=== PATIENT | male | born 1940 | race Caucasian/White ===

== ENCOUNTER 2025-07-19 10:26 | Day surgery (SDC) | payer MEDICARE, SELFPAY ==
--- OUTSIDE RECORDS SUMMARY | 2025-06-07 14:23 | XMS_ITS | Patient Health Record ---
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
--- OUTSIDE RECORDS SUMMARY | 2025-06-07 14:23 | XMS_ITS | Clinical Summary ---
Author Organization [address] [place] [address] [place] [phone] Phone Care Team Providers Care Supervisor [employer] Name Role Phone Al Faustin MD Primary Care Provider [phone] Allergies No known active allergies Medications losartan (COZAAR) 100 mg tablet Take 1 tablet (100 mg total) by mouth 1 (one) time each day. 4 Active temazepam (RESTORIL) 15 mg capsule Take 1 capsule (15 mg total) by mouth 1 (one) time each day if needed. Max Daily Amount: 15 mg Active pantoprazole (PROTONIX) 40 mg EC tablet Take 1 tablet (40 mg total) by mouth 1 (one) time each day. Active hydroCHLOROthia zide (HYDRODIURIL) 25 mg tablet TAKE 1 TABLET DAILY 90 tablet 3 4 Active Additional Information Patient taking differently: 12.5 mgoral Daily, Reported on 12/31/2024 rosuvastatin (CRESTOR) 5 mg tablet TAKE 1 TABLET BY MOUTH EVERY DAY 90 tablet 2 5 Active sotaloL (BETAPACE) 120 mg tablet TAKE 1 TABLET TWICE A DAY 180 tablet 3 5 Active Eliquis 5 mg tablet TAKE 1 TABLET TWICE A DAY 180 tablet 3 5 Active amLODIPine (NORVASC) 2.5 mg tablet Take 1 tablet (2.5 mg total) by mouth 1 (one) time each day. 5 Active senna (SENOKOT) 8.6 mg tablet Take 2 tablets (17.2 mg total) by mouth 1 (one) time each day. Active Active Problems Problem Noted Date Diagnosed Date Overweight with body mass index (BMI) 25.0-29.9 10/26/2024 Suspected severe acute respi ratory syndrome coronavirus 2 (SARS-CoV-2) infection 10/26/2024 Overview (10/26/2024): Removal Reason: Problem added by user noé from the COVID-19 watch flag Osteopenia 05/26/2024 Vitamin D deficiency 05/26/2024 Osteoporosis 05/24/2024 Acute bilateral low back pain without sciatica 0 04/28/2024 Overview (10/26/2024): Last Assessment & Plan: Patient states he did well for couple weeks after the L3 kyphoplasty, his back pain resolved. Then about 1-2 weeks ago he was bending over and felt a sharp sudden stabbing pain in his low back, it has not resolved, his states it is affecting his ability to function every day. He mostly stays in his recliner, he states when he is lying in the recliner he get a little reprieve from the back pain. He is concerned because the pain is constant, but not as severe as the lumbar compression fracture pain. Last night the pain kept him from sleeping well. He is using Tylenol. He was recently in the hospital for abdominal pain, weight loss, had upper GI 04/09/[address] Khanna that was normal, path: A. Small bowel; biopsy: - DUODENAL MUCOSA WITH FOVEOLAR METAPLASIA. B. Antrum; biopsy: - GASTRIC MUCOSA WITH MILD CHRONIC INACTIVE GASTRITIS. - No Helicobacter pylori type gastritis identified. He had abdominal pelvic CT that showed normal sized aorta. I reviewed the imaging, on the sagittal imaging there is no new thoracic or lumbar fractures noted. Mr. Marquez went for lumbar x-rays to rule out new compression fracture, I reviewed them and do not think there is a new fracture, but I will review official report once available. I explained to patient it is important that he is active and ambulating regularly. He can try physical therapy (he has previous prescription I gave him), avoid any exercises that cause increased pain. He may have pulled a muscle when he was leaning over, have pain from muscle strain, can ask his PCP about trying statin vacation x 2 weeks. He also has an upcoming appointment with GI, saw vascular as well for the KARUNA and celiac artery stenosis but is likely getting a second opinion. 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 Continue lipid-lowering medicine and healthy diet. Chronic vascular insufficiency of intestine (CMS /HCC V24) 04/08/2024 Vascular disorder of intestine (CMS/HCC V24) Overview (10/26/2024): mild SMA, mod-severe KARUNA/celiac arteries Cough 03/16/2024 Class 1 obesity 03/16/2024 Sinusitis 03/16/2024 Ventricular premature beats 03/16/2024 Assessment & Plan (12/31/2024 10:20 AM EST): Nonsustained ventricular tachycardia treated with sotalol. QTc at 480 ms. Electrolytes normal. No changes in sotalol dose required. Suspected severe acute respi ratory syndrome coronavirus 2 (SARS-CoV-2) infection 03/16/2024 Overview (10/26/2024): Removal Reason: Problem added by user noé from the COVID-19 watch flag Closed compression fracture of L3 lumbar vertebr a, sequela 03/12/2024 Overview (10/26/2024): L3 Decreased testosterone level 03/18/2023 Unintentional weight loss 10/08/2022 S/P placement of cardiac pacemaker 06/29/2022 Overview (10/26/2024): Done at [facility] on 03/30/22 with JPM - indications: complete heart block having reached elective replacement indicators Osteoarthritis of both knees 03/07/2022 Tricuspid valve regurgitation 11/10/2021 Overview (10/26/2024): mild Prediabetes 08/15/2021 AV block, complete (CMS/HCC V24, CMS/HCC V28) Subclinical hypothyroidism 02/22/2020 Aneurysm of thoracic aorta ([facility]/HCC V24) 020 Basal cell carcinoma of upper extremity 04/08/20 19 Overview (10/26/2024): shoulder Impaired fasting glucose 02/05/2019 Abnormality of thyroid hormone 09/25/2018 Basal cell carcinoma of skin 10/28/2016 Overview (10/26/2024): nose Atrial fibrillation ([facility] V24, CMS/HCC V28) 0 05/01/2014 Overview (10/26/2024): STORY: BUFFUM/KOPLAN Assessment & Plan (12/31/2024 10:19 AM EST): Chronic persistent atrial fibrillation treated with AV node ablation and biventricular pacemaker. Anticoagulated Eliquis due to elevated [id number] score. Discussed pros and cons of watchman implant directives and considerations. He would be a reasonable strong candidate. Pacemaker working well with 3 to 4 years of battery longevity remaining. GERD (gastroesophageal reflux disease) 4 Overview (10/26/2024): Last Assessment & Plan: -continue omeprazole 40mg QD, increased from home dose of 20mg QD Insomnia 05/01/2014 Hyperlipidemia 05/01/2014 Overview (10/26/2024): Last Assessment & Plan: -continue gemfibrozil 600mg BID Headache 05/01/2014 Overview (10/26/2024): RECORDED 05/01/2014 9:17AM BY JASKARAN SHAW MD, OFFICE VISIT Primary malignant neoplasm of skin 05/01/2014 Overview (10/26/2024): BCC Overweight 11/26/2013 Overview (10/26/2024): IMPRESSION: POTENTIAL RN ORTHO HEALTH CONSEQEUNCES DISCUSSED. DOING FAIRLY WELL WITH PHYSICAL ACTIVITY. HEALTHY FOOD CHOICES ADVISED.; RECORDED 05/01/2014 7:15AM BY CONCEPCION LUCERO MA, ANNOTATION/ADDENDUM Disorder of sacrum 11/09/2013 Overview (10/26/2024): IMPRESSION: EXAM C/W MUSCLE SPASM. ADEQUATE HYDRATION AND WARM COMPRESS ADVISED. 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 WILL CONTINUE CURRENT DOSE.; RECORDED 07/07/2013 1:38PM BY PIERO FAULKNER MA, ANNOTATION/ADDENDUM Assessment & Plan (12/31/2024 10:20 AM EST): Blood pressure well-controlled on today's exam. Continue with current medications low-sodium diet and exercise as tolerated. Hypertrophy of breast 07/07/2013 Overview (10/26/2024): RIGHT SIDED; RECORDED 07/07/2013 1:38PM BY PIERO FAULKNER MA, ANNOTATION/ADDENDUM Mass of breast 08/14/2012 Overview (10/26/2024): IMPRESSION: NEEDS FURTHER EVAL, ? BIOPSY WARRANTED WILL DEPEND ON WHAT IMAGING SHOWS. WILL REFER TO [facility] TO HELP FURTHER WITH EVALUATION.; RECORDED 08/25/2012 1:22PM BY PIERO FAULKNER MA, ANNOTATION/ADDENDUM Encounters Date Type Department Care Team Description 05/07/2025 Lab Requisition [facility] - Main Lab [address] [facility] [place] [phone] Maxime Manning MD Essential (primary) hypertension 04/30/2025 Lab Requisition [facility] Main Lab [address] [facility] [place] [phone] Maxime Manning MD Essential (primary) hypertension 04/26/2025 Lab Requisition [facility] Lab [address] [facility] [place] [phone] Maxime Manning MD Essential (primary) hypertension 04/22/2025 11:57 AM EDT - 04/23/2025 3:44 PM EDT Emergency [facility] Emergency [address] [place] [phone] JoseTraefrederick Jara, DO Rosa, Yahir Avalos, Kallie Henry MD Patel, Parth B, MD Goebel, Mathew, MD Generalized weakness (Primary Dx) Discharge Disposition: Another Health Care Institution Not Defined 04/13/2025 9:25 AM EDT Ancillary Procedure [facility] - [facility] [address] [facility] [address] [place] [address] from Last 3 Months Immunizations Name Administration Dates Next Due Influenza Quadravalent, 0.5m l (Fluad) 65yo and older 09/13/2023 Influenza Quadravalent, 0.5m l (Fluzone High-dose) 65yo and older 08/28/2022,09/04/2021 Influenza Quadrivalent, with preservative (Fluzone; Afluria) 6mo and older 08/30/2020,09/22/2017,08/22/2016 Influenza trivalent, 0.5mL ( Fluad) 65yo and older 09/11/2018 Influenza trivalent, 0.5mL ( Fluzone High-dose) 65yo and older 09/01/2024,08/27/2019,08/11/2019,08/29,09/02/2016 Influenza trivalent, with pr eservative (Fluzone; Afluria) 6mo and older 09/11/2014,08/11/2013,08/25/2012 Pneumococcal conjugate 13 va lent (Prevnar 13, PCV13) 2mo and older 01/14/2015 Pneumococcal polysaccharide 23 valent (Pneumovax 23) 2yo and older 01/19/2016 Tdap Tetanus diptheria acell ular pertussis (Boostrix; Adacel) 7yo and older 11/26/2013 Surgical History Surgery Date Site/Laterality Comments KNEE SURGERY N/A PROCEDURE: HISTORICAL KNEE SURGERY; COMMENT: Knee replacement OTHER SURGICAL HISTORY N/A PROCEDURE: HISTORY OTHER; COMMENT: Pacemaker = afib BACK SURGERY 03/26/2024 PROCEDURE: HISTORICAL BACK SURGERY; COMMENT: L3 kyphoplasty, path: neg for malignancy, Dr. Randall Medical History Medical History Date Comments Difficulty balancing DX:Difficul ty balancing Skin disease DX:Skin disease HTN (hypertension) DX:HTN (hyper tension) Pulse irregularity DX:Pulse irre gularity Atrial fibrillation (CMS/HCC V24, CMS/HCC V28) 10/04/2020 DX:Atrial fibrillation (HCC) AV block, complete (CMS/HCC V24, CMS/HCC V28) 02/06/2021 DX:AV block, complete (HCC) Essential hypertension 02/06/2021 DX:Essent ial hypertension Aneurysm of thoracic aorta ( [facility] V24) 01/18/2020 DX:Aneurysm of thoracic aort a (HCC) Hyperlipidemia 05/01/2014 DX:Hyperlipidemi a; COMMENT: Last Assessment & Plan: -continue gemfibrozil 600mg BID GERD (gastroesophageal reflux disease) 4 DX:GERD (gastroesophageal reflux disease); COMMENT: Last Assessment & Plan: -continue omeprazole 40mg QD, increased from home dose of 20mg QD Basal cell carcinoma of skin 10/28/2016 DX: Basal cell carcinoma of skin; COMMENT: nose Disorder of sacrum 11/09/2013 DX:Disorder o f sacrum; COMMENT: IMPRESSION: EXAM C/W MUSCLE SPASM. ADEQUATE HYDRATION AND WARM COMPRESS ADVISED. WILL TRY FORMAL PT AND IF PERSISTANT/WORSE REFER TO PSSP.; RECORDED 11/09/2013 8:41AM BY CONCEPCION LUCERO MA, ANNOTATION/ADDENDUM S/P placement of cardiac pacemaker 06/29/2022 DX:S/P placement of cardiac pacemaker; COMMENT: Done at [facility] on 03/30/22 with JPM - indications: complete heart block having reached elective replacement indicators Diverticulosis DX:Diverticulosi s Social History Tobacco Use Types Packs/Day Years Used Date Smoking Tobacco: Never Smokeless Tobacco: Never Alcohol Use Standard Drinks/Week Comments No 0 (1 standard drink = 0.6 oz pur e alcohol) Sex and Gender Information Value Date Recorded Sex Assigned at Not on file Legal Sex Male 11:51 PM EST Gender Identity Not on file Sexual Orientation Not on file Obstetrics History Last Filed Vital Signs Vital Sign Reading Time Taken Comments Blood Pressure 127/72 04/23/2025 1:06 PM EDT Pulse 61 04/23/2025 1:06 PM EDT Temperature 36.7 C (98.1 F) 04/23/2025 1:06 PM EDT Respiratory Rate 19 04/23/2025 1:06 PM EDT Oxygen Saturation 95% 04/23/2025 1:06 PM EDT Inhaled Oxygen Concentration - - Weight 98 kg (216 lb) 04/23/2025 2:21 AM EDT Height 180.3 cm (5' 11 ) 04/23/2025 2:21 AM EDT Body Mass Index 30.13 04/23/2025 2:21 AM EDT Plan of Treatment Upcoming Encounters Date Type Department Care Team (Late st Contact Info) Description 07/06/2025 9:40 AM EDT Office Visit [facility] - [address] [place] [address] Echo Polo NP [address] [place] [phone] Health Maintenance Due Date Last Done Comments Diabetes: Annual Foot Exam 1950 Diabetes: Annual Retina Eye Exam 1950 Zoster Vaccines (1 of 2) 1958 RSV Immunization Adult Patients (1 - 1-dose 75+ series) 2014 Cholesterol Screening (Lipid Panel) 10/20/2022 Falls Risk Assessment 10/20/2022 Social Influencers of Health Screening 10/20/2022 Medicare Annual Wellness Visit 10/08/2023 10/08/2022 DTaP,Tdap,and Td Vaccines (3 - Td or Tdap) 11/26/2023 11/26/2013, 03/11/2007 COVID-19 Vaccine (4 - season) 2024 09/20/2021, 01/10/2021, 12/20/2020 Depression Screening 11/11/2024 Diabetes: Blood Sugar Control Test (HGBA1C) 01/15/2025 Influenza Vaccine (#1) 2025 , 09/13/2023, 08/28/2022, Additional history exists Hypertension/CHF/CAD Annual BMP Blood Test 05/03/2026 05/03/2025, 04/26/2025, 04/22/2025 Pneumococcal Vaccine: 50+ Years Completed 01/19/2016, 01/14/2015 HIB Vaccines Aged Out No longer eligi ble based on patient's age to complete this topic HPV Vaccines Aged Out No longer eligi ble based on patient's age to complete this topic Hepatitis A Vaccines Aged Out No long er eligible based on patient's age to complete this topic Hepatitis B Vaccines Aged Out No long er eligible based on patient's age to complete this topic IPV Vaccines Aged Out No longer eligi ble based on patient's age to complete this topic MMR Vaccines Aged Out No longer eligi ble based on patient's age to complete this topic Meningococcal ACWY Vaccine Aged Out N o longer eligible based on patient's age to complete this topic Meningococcal B Vaccine Aged Out No l onger eligible based on patient's age to complete this topic RSV Immunization Patients Under 20 months Aged Out No longer eligible based on patient's age to complete this topic Varicella Vaccines Aged Out No longer eligible based on patient's age to complete this topic Medical Devices Implanted Type Area Pharmacist In Charge Device Identifier Shelf Expiration Date Model / Serial / Lot Medt-Card Percepta Turkey Cleaner-P [id number] Implanted: (Quantity not on file) Cardiac KOHINOOR OPERATOR-P [employer] - CARDIAC RHYTH-CRDM PERCEPTA KOHINOOR OPERATOR-P [id number] / [id number] / Procedures Procedure Name Priority Date/Time Associated Diagnosis Comments COMPLETE BLOOD COUNT Routine 05/03/2025 7:06 AM EDT Essential (primary) hypertension BASIC METABOLIC PANEL Routine 05/03/2025 7:06 AM EDT Essential (primary) hypertension BASIC METABOLIC PANEL Routine 04/26/2025 6:21 AM EDT Essential (primary) hypertension COMPLETE BLOOD COUNT Routine 04/26/2025 6:21 AM EDT Essential (primary) hypertension ECG ANNOTATED 04/26/2025 TROPONIN I HIGH SENSITIVITY STAT 04/23/2025 1:50 AM EDT TROPONIN I HIGH SENSITIVITY STAT 04/22/2025 11:46 PM EDT ECG 12-LEAD STAT 04/22/2025 8:[address] HEAD WO CONTRAST STAT 04/22/2025 7 :17 PM EDT XR CHEST 2 VIEWS STAT 04/22/2025 12:5 7 PM EDT MAGNESIUM Add-On 04/22/2025 12:37 PM EDT CREATINE KINASE Add-On 04/22/2025 12:37 PM EDT CBC WITH AUTO DIFFERENTIAL STAT 04/22/2025 12:37 PM EDT COMPREHENSIVE METABOLIC PANEL STAT 04/22/2025 12:37 PM EDT CBC AND DIFFERENTIAL STAT 04/22/2025 12:37 PM EDT [id number], RSV, FLU A AND B QUALITATIVE RT-PCR, INTERNAL LAB STAT 04/22/2025 12:37 PM EDT CARDIAC DEVICE CHECK- REMOTE- MURJ Routine 04/13/2025 9:24 AM EDT from Last 3 Months Results * Complete blood count (05/03/2025 7:06 AM EDT) Only the most recent of2 resultswithin the time period is included. [facility] Signature WBC 10.0 4.8 - 10.8 K/mcL LAB HEMETOLOGY METHOD 05/03/2025 11:54 AM EDT [facility] RBC 4.80 4.50 - 5.50 [facility] LAB HEMETOLOGY METHOD 05/03/2025 11:54 AM [facility] Hemoglobin 15.1 13.5 - 17.5 g/dL LAB HEMETOLOGY METHOD 05/03/2025 11:54 AM [facility] Hematocrit 46.0 42.0 - 54.0 % LAB HEMETOLOGY METHOD 05/03/2025 11:54 AM [facility] MCV 95.6 79.0 - 98.0 FL LAB HEMETOLOGY METHOD 05/03/2025 11:54 AM [facility] MCH 31.4 27.0 - 32.0 pcg LAB HEMETOLOGY METHOD 05/03/2025 11:54 AM [facility] MCHC 32.8 32.0 - 37.0 g/dL LAB HEMETOLOGY METHOD 05/03/2025 11:54 AM [facility] RDW 14.2 11.0 - 15.0 % LAB HEMETOLOGY METHOD 05/03/2025 11:54 AM [facility] Platelets 339 130 - 400 K/mcL LAB HEMETOLOGY METHOD 05/03/2025 11:54 AM [facility] MPV 10.4 7.0 - 11.0 FL LAB HEMETOLOGY METHOD 05/03/2025 11:54 AM [facility] NRBC 0.0 <1.0 % LAB HEMETOLOGY METHOD 05/03/2025 11:54 AM [facility] NRBC Absolute 0.00 <0.10 K/mcL LAB HEMETOLOGY METHOD 05/03/2025 11:54 AM [facility] Blood Venous blood specimen / Unknown Venipuncture / Unknown 05/03/2025 7:06 AM EDT 05/03/2025 11:07 AM EDT us Maxime Manning MD LAB BLOOD ORDERABLES Final Resul t [facility] [address] [place] [address], * Basic metabolic panel (05/03/2025 7:06 AM EDT) Only the most recent of2 resultswithin the time period is included. Sodium 142 133 - 145 mmol/L LAB CHEMISTRY METHOD 05/03/2025 2:14 PM [facility] Potassium 4.1 3.5 - 5.5 mmol/L LAB CHEMISTRY METHOD 05/03/2025 2:14 PM [facility] Chloride 105 96 - 110 mmol/L LAB CHEMISTRY METHOD 05/03/2025 2:14 PM [facility] CO2 27 21 - 32 mmol/L LAB CHEMISTRY METHOD 05/03/2025 2:14 PM [facility] Anion Gap 10 3 - 11 LAB CHEMISTRY METHOD 05/03/2025 2:14 PM [facility] Glucose 79 70 - 100 mg/dL LAB CHEMISTRY METHOD 05/03/2025 2:14 PM [facility] BUN 21 5 - 25 mg/dL LAB CHEMISTRY METHOD 05/03/2025 2:14 PM [facility] Creatinine 0.76 0.70 - 1.30 mg/dL LAB CHEMISTRY METHOD 05/03/2025 [facility] eGFR 88 >=60 mL/min/1. 73m2 LAB CHEMISTRY METHOD 05/03/2025 2:14 PM [facility] Comment:Calculation based on the Chronic Kidney Disease Epidemiology Collaboration (CKD-EPI) equation refit without adjustment for race. BUN/Creatinine Ratio 27.6 LAB CHEMISTRY METHOD 05/03/2025 2:14 PM [facility] Calcium 9.1 8.5 - 10.5 mg/dL LAB CHEMISTRY METHOD 05/03/2025 2:14 PM EDT [facility] Blood Venous blood specimen / Unknown Venipuncture / Unknown 05/03/2025 7:06 AM EDT 05/03/2025 11:07 AM EDT Maxime Manning MD LAB BLOOD ORDERABLES Final Resul t Performing Organization Address City/[facility]/ZIP Co de Phone Number [facility] [address] [place] [address], [place] [phone] * ECG-Annotated (04/26/2025) Provider Onbase ECG ORDERABLES Final Result * Troponin I high sensitivity (04/23/2025 1:50 AM EDT) Only the most recent of2 resultswithin the time period is included. High Sensitivity Troponin I 11 <=79 ng/L LAB CHEMISTRY METHOD 04/23/2025 3:07 AM EDT [facility] Blood Venous blood specimen / Unknown Venipuncture / Unknown 04/23/2025 1:50 AM EDT 04/23/2025 2:14 AM EDT Narrative [facility] - 04/23/2025 3:07 AM EDT High levels of biotin in samples may falsely decrease hsTroponin values. Use caution when interpreting hsTroponin results in patients taking biotin who exhibit renal impairment (eGFR <60) or in patients taking more than 20 mg/day of biotin. us Kallie Arita MD LAB BLOOD ORDERABLES Fin al Result [facility] [address] [place] [address], [place] [phone] * ECG 12 lead (04/22/2025 8:43 PM EDT) Ventricular Rate ECG 63 BPM GEMUSE Atrial Rate 69 BPM GEMUSE QRS Duration 82 ms GEMUSE Q-T Interval 406 ms GEMUSE QTc 415 ms GEMUSE P Wave [place] 28 degrees GEMUSE R [place] 11 degrees GEMUSE T [place] 48 degrees GEMUSE ECG Interpretation Suspect unspecified pacemaker failure Ventricular-pa lorelei rhythm Abnormal ECG When compared with ECG of 31-DEC-2024 09:58, No significant changes are noted Confirmed by YAHIR YOO ([id number]) on 04/23/2025 6:56:06 AM GEMUSE 04/22/2025 8:43 PM EDT 04/23/2025 6:56 AM EDT us Faith Garcia DO ECG ORDERABLES Final Res ult GEMUSE * CT Head wo Contrast (04/22/2025 7:17 PM EDT) Anatomical Region Laterality Modality Head and Neck Computed Tomogra phy 04/22/2025 7:31 PM EDT Impressions 04/22/2025 7:31 PM EDT Impression: No acute findings. This document has been electronically signed by: Ramona Naylor MD on 04/22/2025 19:31:48 Narrative 04/22/2025 7:31 PM EDT INDICATION: Cerebral hemorrhage suspected CT head without contrast Comparison: None Findings: No acute hemorrhage. No extra-axial fluid collection. Prominence of the ventricles and extra-axial spaces due to atrophy of the brain parenchyma. No hydrocephalus, mass-effect or herniation. Sue-white differentiation is maintained. White matter is within normal limits for age. No acute orbital pathology. No acute soft tissue abnormality. No fracture. The visualized paranasal sinuses are predominantly clear. The mastoid air cells are clear. Procedure Note Ramona Lockwood MD - 04/22/2025 INDICATION: Cerebral hemorrhage suspected CT head without contrast Comparison: None Findings: No acute hemorrhage. No extra-axial fluid collection. Prominence of the ventricles and extra-axial spaces due to atrophy of the brainparenchyma. No hydrocephalus, mass-effect or herniation. Sue-white differentiationis maintained. White matter is within normal limits for age. No acute orbital pathology. No acute soft tissue abnormality. Nofracture. The visualized paranasal sinuses are predominantly clear. The mastoidair cells are clear. IMPRESSION: Impression: No acute findings. This document has been electronically signed by: Ramona Naylor MD on 04/22/2025 19:31:48 us Faith Gracia DO IMG CT PROCEDURES Final R esult * XR Chest 2 Views (04/22/2025 12:57 PM EDT) Anatomical Region Laterality Modality Body Radiographic Karuna ging 04/22/2025 1:12 PM EDT Impressions 04/22/2025 1:13 PM EDT No acute findings. -------- FINAL REPORT -------- Dictated By: Vincent Cardoza Dictated Date: 04/22/2025 13:12 ET Assigned Physician: Vincent Cardoza Reviewed and Electronically Signed By: Vincent Cardoza Signed Date: 04/22/2025 13:13 ET Workstation ID: [id number] Transcribed By: Self Edit Transcribed Date: 04/22/2025 13:12 ET Narrative 04/22/2025 1:13 PM EDT PROCEDURE: PA and lateral radiographs of the chest. HISTORY: fever, cough, flulike symptoms. COMPARISON: None. FINDINGS: Mild subsegmental atelectasis at the lung bases. Atherosclerotic calcification of the aorta. Upper normal heart size. Left-sided cardiac pacemaker generator with 2 right ventricular leads and a right atrial lead. No pneumothorax, pleural effusion, or pulmonary edema. Bones are diffusely demineralized. Mild degenerative changes of the spine. Procedure Note Vincent Cardoza MD - 04/22/2025 PROCEDURE: PA and lateral radiographs of the chest. HISTORY: fever, cough, flulike symptoms. COMPARISON: None. FINDINGS: Mild subsegmental atelectasis at the lung bases. Atheroscleroticcalcification of the aorta. Upper normal heart size. Left-sided cardiacpacemaker generator with 2 right ventricular leads and a right atriallead. No pneumothorax, pleural effusion, or pulmonary edema. Bones arediffusely demineralized. Mild degenerative changes of the spine. IMPRESSION: No acute findings. -------- FINAL REPORT -------- Dictated By: Vincent Cardoza Dictated Date: 04/22/2025 13:12 ET Assigned Physician: Vincent Cardoza Reviewed and Electronically Signed By: Vincent Cardoza Signed Date: 04/22/2025 13:13 ET Workstation ID: [id number] Transcribed By: Self Edit Transcribed Date: 04/22/2025 13:12 ET us Faith Garcia DO IMG XR PROCEDURES Final R esult * (ABNORMAL) [id number], RSV, Influenza A and B qualitative RT-PCR (04/22/2025 12:37 PM EDT) Influenza A PCR Not Detected Not Detected LAB MICROBIOLOGY METHOD 04/22/2025 1:33 PM EDT [facility] Influenza B PCR Not Detected Not Detected LAB MICROBIOLOGY METHOD 04/22/2025 1:33 PM EDT [facility] RSV PCR Not Detected Not Detected LAB MICROBIOLOGY METHOD 04/22/2025 1:33 PM EDT [facility] SARS COV-2 Detected(A) Not Detected LAB MICROBIOLOGY METHOD 04/22/2025 1:33 PM EDT [facility] Swab Both anterior nares / Unknown Non-blood Collection / Unknown 04/22/2025 12:37 PM EDT 04/22/2025 12:43 PM EDT Narrative [facility] - 04/22/2025 1:33 PM EDT Disclaimer: Testing was performed using the [employer] GeneXpert Xpress SARS-CoV-2 _Flu_RSV PLUS PCR assay. The manner in which this information is used to guide patient care is the responsibility of the healthcare provider. Results should be correlated with the clinical history, epidemiological data, and other data available to the clinician evaluating the patient. Negative results do not preclude infection. This test has been authorized by the FDA under an Emergency Use Authorization (EUA). This test is only authorized for the duration of time the declaration that circumstances exist justifying the authorization of the emergency use of in vitro diagnostic tests for detection of SARS-CoV-2 virus and/or diagnosis of COVID-19 infection under section 564 (b) (1) of the Act, 21 U.S.C 360bbb-3 (b) (1), unless the authorization is terminated or revoked sooner. Reference Range: Not Detected Fact sheet for Healthcare providers can be found at https://www.fda.gov/media/870938/download. Fact sheet for Healthcare patients can be found at https://www.fda.gov/media/351171/download. Faith Garcia DO LAB MICROBIOLOGY - GENERA L ORDERABLES Final Result [facility] [address] [place] [address], * (ABNORMAL) CBC auto differential (04/22/2025 12:37 PM EDT) WBC 8.6 4.8 - 10.8 K/mcL LAB HEMETOLOGY METHOD 04/22/2025 12:54 PM EDT [facility] RBC 4.70 4.50 - 5.50 M/mcL LAB HEMETOLOGY METHOD 04/22/2025 12:54 PM EDT [facility] Hemoglobin 15.2 13.5 - 17.5 g/dL LAB HEMETOLOGY METHOD 04/22/2025 12:54 PM EDT [facility] Hematocrit 44.9 42.0 - 54.0 % LAB HEMETOLOGY METHOD 04/22/2025 12:54 PM EDT [facility] MCV 96.4 79.0 - 98.0 FL LAB HEMETOLOGY METHOD 04/22/2025 12:54 PM EDT [facility] MCH 32.6(H) 27.0 - 32.0 pcg LAB HEMETOLOGY METHOD 04/22/2025 12:54 PM EDT [facility] MCHC 33.9 32.0 - 37.0 g/dL LAB HEMETOLOGY METHOD 04/22/2025 12:54 PM EDT [facility] RDW 14.6 11.0 - 15.0 % LAB HEMETOLOGY METHOD 04/22/2025 12:54 PM [facility] Platelets 169 130 - 400 K/mcL LAB HEMETOLOGY METHOD 04/22/2025 12:54 PM [facility] MPV 10.6 7.0 - 11.0 FL LAB HEMETOLOGY METHOD 04/22/2025 12:54 PM [facility] NRBC 0.0 <1.0 % LAB HEMETOLOGY METHOD 04/22/2025 12:54 PM [facility] NRBC Absolute 0.00 <0.10 K/mcL LAB HEMETOLOGY METHOD 04/22/2025 12:54 PM [facility] Neutrophils Relative 83.7 % LAB HEMETOLOGY METHOD 04/22/2025 12:54 PM [facility] Lymphocytes Relative 4.7 % LAB HEMETOLOGY METHOD 04/22/2025 12:54 PM [facility] Monocytes Relative 9.5 % LAB HEMETOLOGY METHOD 04/22/2025 12:54 PM [facility] Eosinophils Relative 1.5 % LAB HEMETOLOGY METHOD 04/22/2025 12:54 PM [facility] Basophils Relative 0.2 % LAB HEMETOLOGY METHOD 04/22/2025 12:54 PM [facility] Immature Granulocytes Relative 0.4 % LAB HEMETOLOGY METHOD 04/22/2025 12:54 PM [facility] Neutrophils Absolute 7.16(H) 1.50 - 7.00 K/mcL LAB HEMETOLOGY METHOD 04/22/2025 12:54 PM EDT [facility] Lymphocytes Absolute 0.40(L) 1.00 - 5.00 K/mcL LAB HEMETOLOGY METHOD 04/22/2025 12:54 PM EDT [facility] Monocytes Absolute 0.81 0.20 - 1.00 K/mcL LAB HEMETOLOGY METHOD 04/22/2025 12:54 PM EDT [facility] Eosinophils Absolute 0.13 0.00 - 0.50 K/[facility] LAB HEMETOLOGY METHOD 04/22/2025 12:54 PM EDT [facility] Basophils Absolute 0.02 0.00 - 0.20 K/[facility] LAB HEMETOLOGY METHOD 04/22/2025 12:54 PM EDT [facility] Immature Granulocytes Absolute 0.03 0.00 - 0.03 K/[facility] LAB HEMETOLOGY METHOD 04/22/2025 12:54 PM EDT [facility] Blood Venous blood specimen / Unknown Venipuncture / Unknown 04/22/2025 12:37 PM EDT 04/22/2025 12:43 PM EDT Faith Garcia DO LAB BLOOD ORDERABLES Dayanna l Result [facility] [address] [place] [address], * (ABNORMAL) Magnesium (04/22/2025 12:37 PM EDT) Magnesium 1.8(L) 1.9 - 2.6 mg/dL LAB CHEMISTRY METHOD 04/22/2025 11:19 PM EDT [facility] Comment:Hemolysis present Blood Venous blood specimen / Unknown Venipuncture / Unknown 04/22/2025 12:37 PM EDT 04/22/2025 12:43 PM EDT Kallie Arita MD LAB BLOOD ORDERABLES Fin al Result Performing Organization Address [facility]/ZIP Co de Phone Number [facility] [address] [place] [address], [place] [phone] * Creatine kinase (04/22/2025 12:37 PM EDT) [facility] Total CK 76 22 - 269 unit/L LAB CHEMISTRY METHOD 04/22/2025 8:17 PM EDT [facility] Blood Venous blood specimen / Unknown Venipuncture / Unknown 04/22/2025 12:37 PM EDT 04/22/2025 12:43 PM EDT [facility] Richardson Garcia DO LAB BLOOD ORDERABLES Dayanna l Result Performing Organization Address [facility]/ZIP Co de Phone Number [facility] [address] [place] [address], [place] [phone] * (ABNORMAL) Comprehensive metabolic panel (04/22/2025 12:37 PM EDT) [facility] Sodium 135 133 - 145 mmol/L LAB CHEMISTRY METHOD 04/22/2025 2:04 PM [facility] Potassium 4.2 3.5 - 5.5 mmol/L LAB CHEMISTRY METHOD 04/22/2025 2:04 PM EDT [facility] Comment:Hemolysis present Chloride 101 96 - 110 mmol/L LAB CHEMISTRY METHOD 04/22/2025 2:04 PM T [facility] CO2 28 21 - 32 mmol/L LAB CHEMISTRY METHOD 04/22/2025 2:04 PM [facility] Anion Gap 6 3 - 11 LAB CHEMISTRY METHOD 04/22/2025 2:04 PM [facility] Glucose 104(H) 70 - 100 mg/dL LAB CHEMISTRY METHOD 04/22/2025 2:04 PM [facility] BUN 19 5 - 25 mg/dL LAB CHEMISTRY METHOD 04/22/2025 2:04 PM [facility] Creatinine 0.83 0.70 - 1.30 mg/dL LAB CHEMISTRY METHOD 04/22/2025 2:04 PM [facility] eGFR 85 >=60 mL/min/1. 73m2 LAB CHEMISTRY METHOD 04/22/2025 2:04 PM [facility] Comment:Calculation based on the Chronic Kidney Disease Epidemiology Collaboration (CKD-EPI) equation refit without adjustment for race. BUN/Creatinine Ratio 22.9 LAB CHEMISTRY METHOD 04/22/2025 2:04 PM [facility] Calcium 9.7 8.5 - 10.5 mg/dL LAB CHEMISTRY METHOD 04/22/2025 2:04 PM [facility] AST (SGOT) 22 10 - 42 unit/L LAB CHEMISTRY METHOD 04/22/2025 2:04 PM [facility] Comment:Hemolysis present ALT (SGPT) 23 10 - 60 unit/L LAB CHEMISTRY METHOD 04/22/2025 2:04 PM [facility] Alkaline Phosphatase 50 42 - 121 unit/L LAB CHEMISTRY METHOD 04/22/2025 2:04 PM [facility] Total Protein 6.9 6.0 - 8.0 g/dL LAB CHEMISTRY METHOD 04/22/2025 2:04 PM [facility] Albumin 3.8 3.2 - 5.0 g/dL LAB CHEMISTRY METHOD 04/22/2025 2:04 PM [facility] Total Bilirubin 1.2 0.0 - 1.4 mg/dL LAB CHEMISTRY METHOD 04/22/2025 2:04 PM [facility] Blood Venous blood specimen / Unknown Venipuncture / Unknown 04/22/2025 12:37 PM EDT 04/22/2025 12:43 PM EDT Faith Garcia DO LAB BLOOD ORDERABLES Dayanna l Result [facility] [address] [place] [address], * Cardiac device check - Remote- MURJ (04/13/2025 9:24 AM EDT) Date Time Interrogation Session [id number] CV DEVICE CHECK Type Interrogation Session Remote CV DEVICE CHECK Implantable Pulse Generator Pharmacist In Charge MDT CV DEVICE CHECK Implantable Pulse Generator Type KOHINOOR OPERATOR-P CV DEVICE CHECK Implantable Pulse Generator Model Percepta KOHINOOR OPERATOR-P [id number] CV DEVICE CHECK Implantable Pulse Generator Serial Number [id number] CV DEVICE CHECK Implantable Pulse Generator Implant Date [id number] CV DEVICE CHECK Battery Remaining Longevity 27.0 CV DEVICE CHECK Battery Voltage 2.920 CV D EVICE CHECK Battery VEHICLE MECHANIC Trigger 2.595 CV DEVICE CHECK Battery Status Middle of Service CV DEVICE CHECK Estevan Statistic RA Percent Paced 0.00 CV DEVICE CHECK Estevan Statistic RV Percent Paced 99.99 CV DEVICE CHECK KOHINOOR OPERATOR Statistic LV Percent Paced 99.95 CV DEVICE CHECK KOHINOOR OPERATOR Statistic KOHINOOR OPERATOR Percent Paced 99.95 CV DEVICE CHECK Atrial Tachy Statistic AT/AF Jupiter Percent 100.00 CV DEVICE CHECK Lead Channel Sensing Intrinsic Amplitude 0.750 CV DEVICE CHECK Lead Channel Setting Sensing Sensitivity 0.30 CV DEVICE CHECK Lead Channel Impedance Value 475 CV DEVICE CHECK Lead Channel Setting Sensing Sensitivity 0.90 CV DEVICE CHECK Lead Channel Impedance Value 361 CV DEVICE CHECK Lead Channel Pacing Threshold Amplitude 0.875 CV DEVICE CHECK Lead Channel Pacing Threshold Pulse Width 0.4 CV DEVICE CHECK Lead Channel RV Pacing Threshold Date 2025-04-12 CV DEVICE CHECK Lead Channel Setting Pacing Amplitude 2.000 CV DEVICE CHECK Lead Channel Setting Pacing Pulse Width 0.4 CV DEVICE CHECK Lead Channel Impedance Value 627 CV DEVICE CHECK Lead Channel Setting Pacing Amplitude 3.250 CV DEVICE CHECK Lead Channel Setting Pacing Pulse Width 1.0 CV DEVICE CHECK Estevan Setting Mode (NBG Code) VVIR CV DEVICE CHECK Ventricular chambers paced during KOHINOOR OPERATOR pacing. BiV CV DEVICE CHECK Estevan Setting Lower Rate Limit 60 CV DEVICE CHECK Estevan Setting Maximum Sensor Rate 120 CV DEVICE CHECK KOHINOOR OPERATOR LV-RV Delay 80 CV D EVICE CHECK Zone Setting Type Category AT/AF CV DEVICE CHECK Rate 150 CV DEVICE CHECK Therapies Some Rx Off CV DEVIC E CHECK Zone Setting Status Monitor CV DEVICE CHECK Zone ID 2 CV DEVICE CHECK Zone Setting Type Category VT CV DEVICE CHECK Rate 150 CV DEVICE CHECK Zone Setting Status ENABLED CV DEVICE CHECK Zone ID 6 CV DEVICE CHECK Date of Service 2025-04-23 CV DEVICE CHECK Anatomical Region Laterality Modality Device Interroga tion 04/12/2025 6:57 AM EDT Impressions 04/13/2025 8:48 AM EDT Normal Remote: No Events * Normal Device Function * Alerts or events: None * Battery: OK, 2.25 yrs * Sensing, impedance and thresholds reviewed * Programmed parameters reviewed * Presenting rhythm reviewed * Heart Rate Histograms reviewed * No significant changes noted * Stable Jupiter AF Heart Failure Diagnostic: Stable * Heart failure diagnostics assessed through the device * Status: Stable * No overt HF present Narrative Procedure Note Jose Mattson MD - 04/13/2025 IMPRESSION: Normal Remote: No Events * Normal Device Function * Alerts or events: None * Battery: OK, 2.25 yrs * Sensing, impedance and thresholds reviewed * Programmed parameters reviewed * Presenting rhythm reviewed * Heart Rate Histograms reviewed * No significant changes noted * Stable Jupiter AF Heart Failure Diagnostic: Stable * Heart failure diagnostics assessed through the device * Status: Stable * No overt HF present Jose Mattson MD CV IMPLANTABLE CARDIAC DEVICE PROCEDURES Final Result from Last 3 Months Insurance MEDICARE [facility] Advance Directives Documents on File Type Date Recorded 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 Do not modify or discontinue any currently active code status orders. Care Teams Supervisor [employer] Relationship Specialty Start Date End Date Al Faustin MD [id number] [facility] [address] [place], [place] PCP - General Internal Medicine 02/20/13
[2025-07-16 08:27] VITALS: BMI 30.1
--- NOTE | 2025-07-16 10:45 | HO.ANESPROP2 ---
Documented by User: Cherry Desai NP 07/16/25 10:51 HPI - Anesthesia Eval Consult details Narrative: 85 yr old male for left cataract extraction IOL insertion Medically optimized by PCP at preop visit 07/08/25. Afib: s/p 2 ablations, dual-chamber biventricular pacemaker, on eliquis; device check done 04/2025 showing normal function [facility] Past Medical History Medical History History of cardioversion Cataract, left On anticoagulant therapy Obesity, class 1 HTN (hypertension) Breast mass in male Osteoarthritis Atrial fibrillation Surgical History Surgical History H/O endoscopy H/O colonoscopy H/O total knee replacement Hx of cholecystectomy Hx of appendectomy History of permanent cardiac pacemaker placement Social History Social History Patient Tobacco Use Status: Never used Tobacco Use of substances other than those prescribed or required for medical reasons: No Are you DNR?: No Advance Directives: No Advance Directives Information Provided: Yes Advance Directives on File: No Meds Allergies Allergy/AdvReac Type Severity Reaction Status Date / Time propafenone (From Rythmol) AdvReac Mild HOT AND Verified 07/19/25 11:58 SWEATY Home Medications ?Medication ?Instructions ?Recorded ?Confirmed ?Last Taken ?Type amlodipine 2.5 mg tablet 2.5 mg PO DAILY 07/16/25 07/16/25 07/19/25 History apixaban 5 mg tablet (Eliquis) 5 mg PO BID 07/16/25 07/16/25 07/19/25 History hydrochlorothiazide 25 mg tablet 25 mg PO DAILY 07/16/25 07/16/25 Unknown History losartan 100 mg tablet 100 mg PO DAILY 07/16/25 07/16/25 Unknown History pantoprazole 40 mg tablet,delayed 40 mg PO BID 07/16/25 07/16/25 07/19/25 History release rosuvastatin 5 mg tablet 5 mg PO DAILY 07/16/25 07/16/25 Unknown History sennosides 8.6 mg tablet (senna) 17.2 mg PO DAILY 07/16/25 07/16/25 Unknown History sotalol 120 mg tablet 120 mg PO BID 07/16/25 07/16/25 07/19/25 History temazepam 15 mg capsule 15 mg PO DAILY PRN Insomnia 07/16/25 07/16/25 Unknown History Exam Height,Weight and Vital Signs: Height 5 ft 10.47 in Weight 96.5 kg Documented by User: Echo Mancuso MD 07/19/25 13:25 [facility] Past Medical History Medical History History of cardioversion Cataract, left On anticoagulant therapy Obesity, class 1 HTN (hypertension) Breast mass in male Osteoarthritis Atrial fibrillation Surgical History Surgical History H/O endoscopy H/O colonoscopy H/O total knee replacement Hx of cholecystectomy Hx of appendectomy History of permanent cardiac pacemaker placement History of Problems with Anesthesia: No Social History Social History Patient Tobacco Use Status: Never used Tobacco Use of substances other than those prescribed or required for medical reasons: No Are you DNR?: No Advance Directives: No Advance Directives Information Provided: Yes Advance Directives on File: No Meds Allergies Allergy/AdvReac Type Severity Reaction Status Date / Time propafenone (From Rythmol) AdvReac Mild HOT AND Verified 07/19/25 11:58 SWEATY Home Medications ?Medication ?Instructions ?Recorded ?Confirmed ?Last Taken ?Type amlodipine 2.5 mg tablet 2.5 mg PO DAILY 07/16/25 07/16/25 07/19/25 History apixaban 5 mg tablet (Eliquis) 5 mg PO BID 07/16/25 07/16/25 07/19/25 History hydrochlorothiazide 25 mg tablet 25 mg PO DAILY 07/16/25 07/16/25 Unknown History losartan 100 mg tablet 100 mg PO DAILY 07/16/25 07/16/25 Unknown History pantoprazole 40 mg tablet,delayed 40 mg PO BID 07/16/25 07/16/25 07/19/25 History release rosuvastatin 5 mg tablet 5 mg PO DAILY 07/16/25 07/16/25 Unknown History sennosides 8.6 mg tablet (senna) 17.2 mg PO DAILY 07/16/25 07/16/25 Unknown History sotalol 120 mg tablet 120 mg PO BID 07/16/25 07/16/25 07/19/25 History temazepam 15 mg capsule 15 mg PO DAILY PRN Insomnia 07/16/25 07/16/25 Unknown History Exam Airway Mallampati Class: III TM Dist: >3cm Neck ROM: Limited Loose/Missing/Broken Teeth: No Heart: irregularly irregular rhythm Lungs: CTA Assessment and Plan Assessment Anesthesia Assessment: Anesthesia Plan Discussed and Chart Reviewed Final Anesthetic Review History of Problems with Anesthesia: No NPO: Yes ASA Class: III Final Preanesthetic Review: Meds/Allgs Chart Reviewed, Consent Obtained/Reviewed and Anes Risks/Benef Reviewed Patient Risk: Intermediate Procedure Risk: Low Anesthetic Plan Anesthetic Plan: MAC: Disposition: Standard PACU
[2025-07-19 12:13] VITALS: BP 163/69; PULSE 66; RESP 16; TEMP 36.2; O2SAT 99
[2025-07-19] MEDS: Tetracaine HCl/PF 0.5% Oph Sol 4 ML DROPS 1 DROP EYE-LEFT (12:17)
[2025-07-19] MEDS: Cyclopentolate 1 % Ophth Sol 2 ML DRPBTL 1 DROP EYE-LEFT ×3 (12:19→12:24)
[2025-07-19] MEDS: Tropicamide 1 % Ophth Sol 3 ML BTL 1 DROP EYE-LEFT ×3 (12:19→12:25)
[2025-07-19] MEDS: Ketorolac Tromethamine 0.5% Op 5 ML DROPS 1 DROP EYE-LEFT ×3 (12:20→12:26)
[2025-07-19] MEDS: Phenylephrine HCL 2.5% Oph SoL 2 ML BOTTLE 1 DROP EYE-LEFT ×3 (12:21→12:27)
[2025-07-19] MEDS: Lactated Ringers 500 ML 50 ML IV (12:28)
--- NOTE | 2025-07-19 13:04 | MHC.SHP ---
Pre-Procedural Eval Section A - 24 Hr Update-Section A only Date of Service: 07/19/25 The patient is an INPATIENT: No Changes since office visit: No Cold of Flu in the past 2 weeks, No New Medical Problems, No Changes in Medication and No Patient answered all questions The patient has been examined within 24 hours of the surgical procedure. The History & Physical has been completed within 30 days and I have reviewed it.: Yes Section B - Complete if H&P > 30 days Chief Complaint: Age-related nuclear cataract, left eye Allergies: Allergies Allergy/AdvReac Type Severity Reaction Status Date / Time propafenone (From Rythmol) AdvReac Mild HOT AND Verified 07/19/25 11:58 SWEATY Plan Diagnosis/Plan: Unchanged I have reviewed the history and physical and performed a pertinent physical examination on my patient. No changes have occurred unless specified. Time Spent With Patient Time: Total time managing care of this patient today ____ minutes.
--- NOTE | 2025-07-19 13:04 | HO.PNOPHT ---
Ophthalmology Procedure Procedure Date of Service: 07/19/25 Ophthalmology Viscoelastic: Healon Duet Dual Pack Pro Ophthalmology Lenses: IOL Acrysof MP - [id number] (19) Procedure Notes: PREOPERATIVE DIAGNOSIS: Decreased visual acuity left eye secondary to cataract POSTOPERATIVE DIAGNOSIS: Same PROCEDURE: Left cataract extraction with intraocular lens insertion SURGEON: Yahir Page M.D. ANESTHESIA: Topical/MAC ESTIMATED BLOOD LOSS: None COMPLICATIONS: None After obtaining informed consent, the patient was brought to the operation room suite and placed in the supine position. After adequate sedation per anesthesia, topical drops of Tetracaine were given to the left eye. The eye was then prepped and draped in the usual sterile fashion. The operating room microscope was then positioned over the operative eye and a lid speculum placed. A paracentesis was created. Viscoelastic was then instilled into the anterior chamber. A three plane incision was then created temporally, utilizing a 2.85 mm keratome. Capsulotomy forceps were then utilized to create a circular tear capsulotomy. Hydrodissection and hydrodelineation were carried out until adequate mobilization of the nucleus occurred. Phacoemulsification was then utilized to remove the dense central nucleus followed by removal of the cortical material utilizing the automated aspiration irrigation unit. Viscoat elastic was instilled into the posterior capsular bag followed by placement of a posterior chamber intraocular lens without difficulty. The residual Viscoat elastic was then removed utilizing the automated IA machine. The wound was check and found to be watertight. The patient tolerated the procedure well and the lid speculum was removed. Intracameral injection of Vigamox 0.1 mL followed by a subtenon injection of Kenalog-40 0.2 mL were administered. The patient will be seen in the a.m.
[2025-07-19 13:30] VITALS: BP 158/82; PULSE 60; RESP 18; TEMP 36.6; O2SAT 99
== END 2025-07-19 13:43 | disposition home or self-care (01) ==
PROVIDERS: PCP Pediatrics; Visit Provider Ophthalmology
PROC: (CPT 66985; principal; 2025-07-19 13:30)
DX: H25.12 Age-related nuclear cataract, left eye (principal); H54.7 Unspecified visual loss; H18.413 Arcus senilis, bilateral; I10 Essential (primary) hypertension; E78.00 Pure hypercholesterolemia, unspecified; I48.91 Unspecified atrial fibrillation; Z95.0 Presence of cardiac pacemaker; Z79.01 Long term (current) use of anticoagulants; Z79.899 Other long term (current) drug therapy; Z96.652 Presence of left artificial knee joint
CPT/HCPCS: 66984; J3010; J3301; V2630

== ENCOUNTER 2025-08-02 08:14 | Day surgery (SDC) | payer MEDICARE, SELFPAY ==
[2025-07-16 08:35] VITALS: BMI 30.1
--- NOTE | 2025-07-29 09:50 | HO.ANESPROP2 ---
Documented by User: Miranda Hou NP 07/29/25 09:51 HPI - Anesthesia Eval Consult details Narrative: 85yo M for Right Cataract Extraction IOL Insertion Left eye 07/19/25: Fent 50 Afib on eliquis: s/p 2 ablations, dual-chamber biventricular pacemaker, on eliquis; device check done 04/2025 showing normal function [facility] Past Medical History Medical History History of cardioversion Cataract, left On anticoagulant therapy Obesity, class 1 HTN (hypertension) Breast mass in male Osteoarthritis Atrial fibrillation Surgical History Surgical History H/O endoscopy H/O colonoscopy H/O total knee replacement Hx of cholecystectomy Hx of appendectomy History of permanent cardiac pacemaker placement History of Problems with Anesthesia: No Social History Social History Patient Tobacco Use Status: Never used Tobacco Use of substances other than those prescribed or required for medical reasons: No Advance Directives: No Advance Directives Information Provided: Yes Advance Directives on File: No Meds Allergies Allergy/AdvReac Type Severity Reaction Status Date / Time propafenone (From Rythmol) AdvReac Mild HOT AND Verified 08/02/25 10:12 SWEATY Home Medications ?Medication ?Instructions ?Recorded ?Confirmed ?Last Taken ?Type amlodipine 2.5 mg tablet 2.5 mg PO DAILY 07/16/25 07/16/25 08/02/25 History apixaban 5 mg tablet (Eliquis) 5 mg PO BID 07/16/25 07/16/25 08/02/25 History hydrochlorothiazide 25 mg tablet 25 mg PO DAILY 07/16/25 07/16/25 Unknown History losartan 100 mg tablet 100 mg PO DAILY 07/16/25 07/16/25 Unknown History pantoprazole 40 mg tablet,delayed 40 mg PO BID 07/16/25 07/16/25 08/02/25 History release rosuvastatin 5 mg tablet 5 mg PO DAILY 07/16/25 07/16/25 08/02/25 History sennosides 8.6 mg tablet (senna) 17.2 mg PO DAILY 07/16/25 07/16/25 Unknown History sotalol 120 mg tablet 120 mg PO BID 07/16/25 07/16/25 08/02/25 History temazepam 15 mg capsule 15 mg PO DAILY PRN Insomnia 07/16/25 07/16/25 Unknown History Exam Height,Weight and Vital Signs: Height 5 ft 10.47 in Weight 96.5 kg Assessment and Plan Assessment Anesthesia Assessment: Chart Reviewed Final Anesthetic Review History of Problems with Anesthesia: No Documented by User: Echo Mancuso MD 08/02/25 11:05 [facility] Past Medical History Medical History History of cardioversion Cataract, left On anticoagulant therapy Obesity, class 1 HTN (hypertension) Breast mass in male Osteoarthritis Atrial fibrillation Surgical History Surgical History H/O endoscopy H/O colonoscopy H/O total knee replacement Hx of cholecystectomy Hx of appendectomy History of permanent cardiac pacemaker placement Social History Social History Patient Tobacco Use Status: Never used Tobacco Use of substances other than those prescribed or required for medical reasons: No Advance Directives: No Advance Directives Information Provided: Yes Advance Directives on File: No Meds Allergies Allergy/AdvReac Type Severity Reaction Status Date / Time propafenone (From Rythmol) AdvReac Mild HOT AND Verified 08/02/25 10:12 SWEATY Home Medications ?Medication ?Instructions ?Recorded ?Confirmed ?Last Taken ?Type amlodipine 2.5 mg tablet 2.5 mg PO DAILY 07/16/25 07/16/25 08/02/25 History apixaban 5 mg tablet (Eliquis) 5 mg PO BID 07/16/25 07/16/25 08/02/25 History hydrochlorothiazide 25 mg tablet 25 mg PO DAILY 07/16/25 07/16/25 Unknown History losartan 100 mg tablet 100 mg PO DAILY 07/16/25 07/16/25 Unknown History pantoprazole 40 mg tablet,delayed 40 mg PO BID 07/16/25 07/16/25 08/02/25 History release rosuvastatin 5 mg tablet 5 mg PO DAILY 07/16/25 07/16/25 08/02/25 History sennosides 8.6 mg tablet (senna) 17.2 mg PO DAILY 07/16/25 07/16/25 Unknown History sotalol 120 mg tablet 120 mg PO BID 07/16/25 07/16/25 08/02/25 History temazepam 15 mg capsule 15 mg PO DAILY PRN Insomnia 07/16/25 07/16/25 Unknown History Exam Airway Mallampati Class: III TM Dist: >3cm Neck ROM: Limited Loose/Missing/Broken Teeth: No Heart: irregularly irregular rhythm Lungs: CTA Assessment and Plan Assessment Anesthesia Assessment: Anesthesia Plan Discussed Final Anesthetic Review NPO: Yes ASA Class: III Final Preanesthetic Review: Meds/Allgs Chart Reviewed, Consent Obtained/Reviewed and Anes Risks/Benef Reviewed Patient Risk: Intermediate Procedure Risk: Low Anesthetic Plan Anesthetic Plan: MAC: Disposition: Standard PACU
[2025-08-02] MEDS: Cyclopentolate 1 % Ophth Sol 2 ML DRPBTL 1 DROP EYE-RIGHT ×3 (09:50→10:00)
[2025-08-02] MEDS: Lactated Ringers 500 ML 50 ML IV (09:50)
[2025-08-02] MEDS: Tetracaine HCl/PF 0.5% Oph Sol 4 ML DROPS 1 DROP EYE-RIGHT (09:50)
[2025-08-02] MEDS: Tropicamide 1 % Ophth Sol 3 ML BTL 1 DROP EYE-RIGHT ×3 (09:50→09:59)
[2025-08-02] MEDS: Phenylephrine HCL 2.5% Oph SoL 2 ML BOTTLE 1 DROP EYE-RIGHT ×3 (09:51→10:00)
[2025-08-02] MEDS: Ketorolac Tromethamine 0.5% Op 5 ML DROPS 1 DROP EYE-RIGHT ×3 (09:51→10:00)
[2025-08-02 10:06] VITALS: BP 137/73; PULSE 73; RESP 18; TEMP 36.7; O2SAT 96
--- NOTE | 2025-08-02 10:51 | MHC.SHP ---
Pre-Procedural Eval Section A - 24 Hr Update-Section A only Date of Service: 08/02/25 The patient is an INPATIENT: No Changes since office visit: No Cold of Flu in the past 2 weeks, No New Medical Problems, No Changes in Medication and No Patient answered all questions The patient has been examined within 24 hours of the surgical procedure. The History & Physical has been completed within 30 days and I have reviewed it.: Yes Section B - Complete if H&P > 30 days Chief Complaint: Age-related nuclear cataract, right eye Allergies: Allergies Allergy/AdvReac Type Severity Reaction Status Date / Time propafenone (From Rythmol) AdvReac Mild HOT AND Verified 08/02/25 10:12 SWEATY Plan Diagnosis/Plan: Unchanged I have reviewed the history and physical and performed a pertinent physical examination on my patient. No changes have occurred unless specified. Time Spent With Patient Time: Total time managing care of this patient today ____ minutes.
--- NOTE | 2025-08-02 10:52 | P.PCNO_ITS ---
Ophthalmology Procedure Procedure Date of Service: 08/02/25 Ophthalmology Viscoelastic: Healon Duet Dual Pack Pro Ophthalmology Lenses: IOL Acrysof MP - [id number] (20.5) Procedure Notes: PREOPERATIVE DIAGNOSIS: Decreased visual acuity right eye secondary to cataract POSTOPERATIVE DIAGNOSIS: Same PROCEDURE: Right cataract extraction with intraocular lens insertion SURGEON: Yahir Page M.D. ANESTHESIA: Topical/MAC ESTIMATED BLOOD LOSS: None COMPLICATIONS: None After obtaining informed consent, the patient was brought to the operating room suite and placed in the supine position. After adequate sedation per anesthesia, topical drops of Tetracaine were given to the right eye. The eye was then prepped and draped in the usual sterile fashion. The operating room microscope was then positioned over the operative eye and a lid speculum placed. A paracentesis was created. Viscoelastic was then instilled into the anterior chamber. A three plane incision was then created temporally, utilizing a 2.85 mm keratome. Capsulotomy forceps were then utilized to create a circular tear capsulotomy. Hydrodissection and hydrodelineation were carried out until adequate mobilization of the nucleus occurred. Phacoemulsification was then utilized to remove the dense central nu cleus followed by removal of the cortical material utilizing the automated aspiration irrigation unit. Viscoelastic was instilled into the posterior capsular bag followed by placement of a posterior chamber intraocular lens without difficulty. The residual Viscoelastic was then removed utilizing the automated IA machine. The wound was checked and found to be watertight. The patient tolerated the procedure well and the lid speculum was removed. Intracameral injection of Vigamox 0.1 mL followed by a subtenon injection of Kenalog-40 0.2 mL were administered. The patient will be seen in the a.m.
[2025-08-02 11:18] VITALS: BP 166/76; PULSE 61; RESP 18; TEMP 36.4; O2SAT 98
== END 2025-08-02 11:32 | disposition hospice, home (50) ==
PROVIDERS: PCP Pediatrics; Visit Provider Ophthalmology
PROC: (CPT 66985; principal; 2025-08-02 11:00)
DX: H25.11 Age-related nuclear cataract, right eye (principal); H53.8 Other visual disturbances; Z83.518 Family history of other specified eye disorder; H18.413 Arcus senilis, bilateral; I48.91 Unspecified atrial fibrillation; I10 Essential (primary) hypertension; E78.00 Pure hypercholesterolemia, unspecified; Z95.0 Presence of cardiac pacemaker; Z79.01 Long term (current) use of anticoagulants; Z79.899 Other long term (current) drug therapy
CPT/HCPCS: 66984; J3010; J3301; V2630